=== PATIENT | male | born 1995 | race American Indian/Alaskan Native ===

== ENCOUNTER 2018-05-17 16:52 | Emergency (ER) | payer SELFPAY ==
[2018-05-17] MEDS ORDERED: PERCOCET 5/325 ONE (20:21)
[2018-05-17] MEDS ORDERED: PERCOCET 5/325 PO ONE (20:25)
--- NOTE | 2018-05-17 20:25 | Emergency Department Report ---
Abscess Boil HPI - HPI Chief Complaint: Skin/Abscess/Foreign Body Stated Complaint: BUMP ON CHEST Time Seen by Provider: 05/17/18 20:20 Duration: 3 Days Location: Chest Severity: Severe History: Yes Pain, Yes Purulent Drainage, No Fever, No Numbness, No Foreign Body , No Previous History, No Insect Bite HPI: 23-year-old -[place] male comes in with a bump to his chest. He states this started several days ago. He reports that it is painful and located in the middle of his chest. He denies any fever chills no nausea no vomiting currently has no known drug allergies no past medical history takes no medications on a daily basis. Home Medications: Previous Rx's Medication Instructions Recorded Last Taken Type Cephalexin [Keflex] 500 mg PO BID #14 capsule 05/17/18 Unknown Rx Allergies/Adverse Reactions: Allergies Allergy/AdvReac Type Severity Reaction Status Date / Time No Known Allergies Allergy Unverified 05/17/18 17:01 ED Review of Systems ROS: Stated complaint: BUMP ON CHEST Other details as noted in HPI Constitutional: denies: chills, fever Gastrointestinal: denies: abdominal pain, nausea, diarrhea Skin: lesions (1 chest) ED Past Medical Hx - Past Medical History Previous Medical History?: No - Surgical History Past Surgical History?: No - Social History Smoking Status: Current Every Day Smoker Substance Use Type: None - Medications Home Medications: Home Medications Medication Instructions Recorded Confirmed Last Taken Type Cephalexin [Keflex] 500 mg PO BID #14 capsule 05/17/18 Unknown Rx ED Abscess Boil Physical Exam - Exam General: Vital signs noted. No distress. Alert and acting appropriately. Size: 2 cm Exam: Yes Tenderness, Yes Fluctuance, Yes Normal Neurologic Exam, Yes Normal Circulation, No Surrounding Cellulites/Erythema, No Lymphangitis, No Crepitation , No Heart Murmur I & D Note - I & D Note I & D Note: Area was draped with sterile field iodine Q-tips were used to clean the surface area. Lidocaine 1% use to the center of the abscess about 2 mL, 11 blade used to make a half a centimeter incision and was able to express out about 3 mL of thick white serosanguineous discharge. Sterile bandage was placed on the wound. Patient tolerated procedure well. ED Course Vital Signs 05/17/18 17:01 Temperature 97.8 F Pulse Rate 46 L Respiratory 16 Rate Blood Pressure 128/68 O2 Sat by Pulse 100 Oximetry Critical care attestation.: If time is entered above; I have spent that time in minutes in the direct care of this critically ill patient, excluding procedure time. ED Medical Decision Making - Medical Decision Making Recent has been evaluated with this provider fast track. Incision and marleny was performed Percocet given to patient prior to procedure. Discussed patient with placement a few days of antibiotics and pain medication he can follow-up with his primary care provider. Tylenol and Motrin for pain medication as needed. ED Disposition Clinical Impression: Abscess of chest Disposition: DC-01 TO HOME OR SELFCARE Is pt being admited?: No Does the pt Need Aspirin: No Condition: Stable Instructions: Abscess (ED), Peritonsillar Abscess (ED) Additional Instructions: Please complete antibiotic as prescribed. [id number] Motrin or Tylenol should take care of her pain. Follow-up with the primary care provider if symptoms persist or gets worse. Prescriptions: Cephalexin [Keflex] 500 mg PO BID #14 capsule Referrals: PRIMARY CAREMD [Primary Care Provider] - 3-5 Days [facility] [Provider Group] - 3-5 Days Forms: Work/School Release Form(ED), Accompanied Note
[2018-05-17 21:07] VITALS: BP 130/70
== END 2018-05-17 21:10 | disposition home or self-care (01) ==
LOC: ED 16:52
DX: L02.213 Cutaneous abscess of chest wall (principal); F17.200 Nicotine dependence, unspecified, uncomplicated
CPT/HCPCS: 99282